=== PATIENT | female | born 1995 | race African-American/Black ===

== ENCOUNTER → 2017-01-22 | Outpatient (CLI) | payer MEDICAID, OTHER ==
[2017-01-22 13:19] LABS: BASO # 0.1 K/mm3 (0.0-0.2); BASO % 0.9 % (0.0-1.0); EOS # 0.1 K/mm3 (0.0-0.50); EOS % 1.7 % (0.0-3.0); LARGE UNSTAINED CELL # 0.1 K/mm3 (0.0-0.4); LARGE UNSTAINED CELL % 1.5 % (0.0-4.0); LYMPH # 2.1 K/mm3 (1.5-6.5); LYMPH % 29.1 % (24.0-44.0); MEAN CORPUSCULAR HEMOGLOBIN 28.9 pg (27.0-33.0); MEAN CORPUSCULAR HGB CONC 32.5 g/dl (32.0-36.5); MONO # 0.4 K/mm3 (0.0-0.8); MONO % 5.6 % (0.0-5.0); NEUTROPHILS # 4.5 K/mm3 (1.8-7.7); NEUTROPHILS % 61.2 % (36.0-66.0); PLATELET COUNT, AUTOMATED 306 k/mm3 (150-450); RED CELL DISTRIBUTION WIDTH 12.3 % (11.5-14.5); WHITE BLOOD COUNT 7.3 K/mm3 (4.0-10.0)
[2017-01-22 14:13] LABS: HIV SCRN NEGATIVE (NEGATIVE); HIV SCRN1 NEGATIVE (NEGATIVE)
[2017-01-22 14:14] LABS: CONTROL LINE INT CTR LINE PRESENT
== END ==
LOC: M LAB 11:49
PROVIDERS: ATTEND Advanced Practice Midwife
DX: Z34.81 Encounter for supervision of other normal pregnancy, first trimester (principal)

== ENCOUNTER → 2017-02-04 | Outpatient (REF) | payer MEDICAID ==
[2017-02-07 14:36] LABS: GC Carboxy THC 118 ng/mL (Cutoff=10)
== END ==
LOC: M LAB REF 13:09
PROVIDERS: ATTEND Advanced Practice Midwife
DX: Z34.81 Encounter for supervision of other normal pregnancy, first trimester (principal)

== ENCOUNTER → 2017-04-01 | Outpatient (CLI) | payer MEDICAID | LOC: M SMT 11:33 | PROVIDERS: ATTEND Advanced Practice Midwife | DX: Z13.71 Encounter for nonprocreative screening for genetic disease carrier status (principal) ==

== ENCOUNTER → 2017-04-15 | Outpatient (CLI) | payer OTHER ==
--- NOTE | 2017-04-16 05:02 | REP ---
Clinical: Anatomical evaluation. Comparison: None . Findings: Examination demonstrates a single live intrauterine in variable presentation. motion is identified by technologist. Placenta is noted anteriorly and grade zero without evidence for placenta previa or abruption. Amniotic fluid volume is normal. Cervix measures 3.4 cm in length and appears closed. No evidence for nuchal cord. Gestational age by LMP 18 weeks 5 days with CON 09/11/2017 . Gestational age by current measurements 19 weeks 0 days with CON 09/09/2017 . FHR equals 141 beats per minute. BPD 4.2 cm 18 weeks 4 days HC 15.4 cm 18 weeks 3 days AC 14.4 cm 19 weeks 5 days FL 3.2 cm 19 weeks 6 days HL 3.1 cm 20 weeks 3 days HC/AC ratio 1.07 Estimated weight the 103 grams ( 83rd percentile). Anatomical assessment demonstrates normal structures including cranium, choroid plexus, cavum, cerebellum/posterior fossa, facial features, lungs, diaphragm, stomach, cord insertion/three-vessel cord, kidneys/bladder, and extremities. Limited evaluation of the heart/ventricular outflow tracts and spine noted. Impression: 1. Single live intrauterine demonstrating appropriate interval growth. 2. Anatomical limitations as described above may warrant reevaluation and follow-up. Signed by Keith Ash MD 04/16/2017 04:53 A
== END ==
LOC: M SMT 09:25
PROVIDERS: ATTEND Advanced Practice Midwife
DX: Z34.82 Encounter for supervision of other normal pregnancy, second trimester (principal)

== ENCOUNTER → 2017-05-06 | Outpatient (CLI) | payer OTHER ==
--- NOTE | 2017-05-06 12:13 | REP ---
Clinical: Anatomical evaluation. Comparison: 04/15/2017 . Findings: Examination demonstrates a single live intrauterine in variable presentation. motion is identified by technologist. Placenta is noted anteriorly and grade zero without evidence for placenta previa or abruption. Amniotic fluid volume is normal. Cervix measures 4.0 cm in length and appears closed. No evidence for nuchal cord. Gestational age by LMP 21 weeks 5 days with CON 09/11/2017 . Gestational age by current measurements 22 weeks 0 days with CON 09/09/2017 . FHR equals 141 beats per minute. Estimated weight 524 grams ( 79th percentile). Anatomical assessment demonstrates normal structures including cranium, choroid plexus, cavum, cerebellum/posterior fossa, facial features, lungs, four-chamber heart/ left ventricular outflow tract, diaphragm, stomach, cord insertion/three-vessel cord, kidneys/bladder, spine, and extremities. Impression: Single live intrauterine in variable presentation demonstrating appropriate interval growth. In conjunction with prior examination anatomical assessment is essentially normal and complete although evaluation of the right cardiac ventricular outflow tract is again somewhat limited. Signed by Keith Ash MD 05/06/2017 08:57 A
== END ==
LOC: M SMT 07:43
PROVIDERS: ATTEND Advanced Practice Midwife
DX: Z34.82 Encounter for supervision of other normal pregnancy, second trimester (principal)

== ENCOUNTER → 2017-06-03 | Outpatient (CLI) | payer OTHER ==
[~2017-06-03] MED LIST: PRENTAB9 PO
--- NOTE | 2017-06-04 04:20 | REP ---
Clinical: Anatomical evaluation. Comparison: 05/06/2017 . Findings: Examination demonstrates a single live intrauterine in cephalic presentation. motion is identified by technologist. Placenta is noted anteriorly and grade one without evidence for placenta previa or abruption. Amniotic fluid volume is normal. Cervix measures 4.1 cm in length and appears closed. No evidence for nuchal cord. Gestational age by LMP 25 weeks 5 days with CON 09/11/2017 . Gestational age by current measurements 25 weeks 6 days with CON 09/10/2017 . FHR equals 141 beats per minute. Estimated weight 943 grams ( 65th percentile). Anatomical assessment demonstrates normal structures including cranium, choroid plexus, cavum, cerebellum/posterior fossa, facial features, lungs, four-chamber heart/ventricular outflow tracts, diaphragm, stomach, cord insertion/three-vessel cord, kidneys/bladder, and extremities. Impression: Single live intrauterine in cephalic presentation demonstrating appropriate interval growth. In conjunction with prior examination anatomical assessment is complete and normal. Signed by Keith Ash MD 06/04/2017 04:12 A
== END ==
LOC: M SMT 08:56
PROVIDERS: ATTEND Advanced Practice Midwife
DX: Z34.83 Encounter for supervision of other normal pregnancy, third trimester (principal)

== ENCOUNTER 2017-06-15 11:30 | Outpatient (CLI) | payer OTHER ==
[~2017-06-15] VITALS: Ht 175.3 cm; Wt 82.0 kg
[2017-06-15] MEDS ORDERED: PRENTAB9 PO (11:37)
[2017-06-15 11:42] VITALS: BP 121/71
[2017-06-15 11:54] VITALS: BP 121/71
[2017-06-15] MEDS ORDERED: LR 1,000 ML IV ONE (12:15)
[2017-06-15 12:37] LABS: BASO % 0.3 % (0.0-1.0); EOS # 0.1 K/mm3 (0.0-0.50); EOS % 1.7 % (0.0-3.0); LARGE UNSTAINED CELL # 0.1 K/mm3 (0.0-0.4); LARGE UNSTAINED CELL % 1.7 % (0.0-4.0); LYMPH # 0.9 K/mm3 (1.5-6.5); LYMPH % 9.6 % (24.0-44.0); MEAN CORPUSCULAR HEMOGLOBIN 30.7 pg (27.0-33.0); MEAN CORPUSCULAR HGB CONC 34.2 g/dl (32.0-36.5); MEAN CORPUSCULAR VOLUME 89.9 fl (80.0-96.0); MONO # 0.4 K/mm3 (0.0-0.8); MONO % 5.8 % (0.0-5.0); NEUTROPHILS # 6.2 K/mm3 (1.8-7.7); NEUTROPHILS % 80.9 % (36.0-66.0); PLATELET COUNT, AUTOMATED 298 k/mm3 (150-450); RED CELL DISTRIBUTION WIDTH 12.8 % (11.5-14.5); WHITE BLOOD COUNT 7.7 K/mm3 (4.0-10.0)
[2017-06-15 13:00] LABS: ALBUMIN 2.9 GM/DL (3.2-5.2); ALBUMIN/GLOBULIN RATIO 0.69 (1.00-1.93); ALKALINE PHOSPHATASE 74 U/L (45-117); ALT/SGPT 21 U/L (12-78); ANION GAP 10 MEQ/L (8-16); AST/SGOT 22 U/L (15-37); BILIRUBIN,TOTAL 0.5 MG/DL (0.2-1.0); BLOOD UREA NITROGEN 6 MG/DL (7-18); CALCIUM LEVEL 8.6 MG/DL (8.5-10.1); CARBON DIOXIDE LEVEL 22 MEQ/L (21-32); CHLORIDE LEVEL 105 MEQ/L (98-107); CREATININE FOR GFR 0.44 MG/DL (0.55-1.02); GLUCOSE, FASTING 79 MG/DL (70-105); POTASSIUM SERUM 3.8 MEQ/L (3.5-5.1); SODIUM LEVEL 137 MEQ/L (136-145); TOTAL PROTEIN 7.1 GM/DL (6.4-8.2)
== END 2017-06-15 13:45 | disposition home or self-care (01) ==
LOC: M LDO 11:30
PROVIDERS: ATTEND Obstetrics & Gynecology
DX: O99.612 Diseases of the digestive system complicating pregnancy, second trimester (principal); K52.9 Noninfective gastroenteritis and colitis, unspecified; Z3A.27 27 weeks gestation of pregnancy; Z88.0 Allergy status to penicillin

== ENCOUNTER → 2017-06-24 | Outpatient (CLI) | payer OTHER ==
[2017-06-24 14:06] LABS: BASO % 0.4 % (0.0-1.0); EOS # 0.1 K/mm3 (0.0-0.50); EOS % 1.3 % (0.0-3.0); LARGE UNSTAINED CELL # 0.1 K/mm3 (0.0-0.4); LARGE UNSTAINED CELL % 1.4 % (0.0-4.0); LYMPH # 1.4 K/mm3 (1.5-6.5); LYMPH % 23.6 % (24.0-44.0); MEAN CORPUSCULAR HEMOGLOBIN 30.4 pg (27.0-33.0); MEAN CORPUSCULAR HGB CONC 33.3 g/dl (32.0-36.5); MEAN CORPUSCULAR VOLUME 91.4 fl (80.0-96.0); MONO # 0.4 K/mm3 (0.0-0.8); MONO % 6.3 % (0.0-5.0); NEUTROPHILS % 66.9 % (36.0-66.0); PLATELET COUNT, AUTOMATED 345 k/mm3 (150-450); RED CELL DISTRIBUTION WIDTH 12.4 % (11.5-14.5)
== END ==
LOC: M SMT 09:34
PROVIDERS: ATTEND Advanced Practice Midwife
DX: Z34.83 Encounter for supervision of other normal pregnancy, third trimester (principal)

== ENCOUNTER → 2017-08-09 | Outpatient (CLI) | payer OTHER ==
[~2017-08-09] MED LIST changes: +ACET50TA PO; +IBUP-1114 PO
[2017-08-09 13:40] LABS: MEAN CORPUSCULAR HEMOGLOBIN 29.1 pg (27.0-33.0); RED CELL DISTRIBUTION WIDTH 13.5 % (11.5-14.5); WHITE BLOOD COUNT 8.3 10^3/uL (4.0-10.0)
== END ==
LOC: M SMT 11:58
PROVIDERS: ATTEND Obstetrics & Gynecology
DX: Z34.83 Encounter for supervision of other normal pregnancy, third trimester (principal)

== ENCOUNTER → 2017-08-14 | Outpatient (REF) | payer OTHER | LOC: M LAB REF 12:41 | PROVIDERS: ATTEND Obstetrics & Gynecology | DX: Z34.83 Encounter for supervision of other normal pregnancy, third trimester (principal) ==

== ENCOUNTER 2017-09-17 08:16 | Outpatient (CLI) | payer OTHER ==
[~2017-09-17] VITALS: Ht 175.3 cm; Wt 95.0 kg
[~2017-09-17 08:16] MED LIST changes: -ACET50TA PO; -IBUP-1114 PO
== END 2017-09-17 13:40 | disposition home or self-care (01) ==
LOC: M LDO 08:16
PROVIDERS: ATTEND Advanced Practice Midwife
DX: O47.1 False labor at or after 37 completed weeks of gestation (principal); Z3A.40 40 weeks gestation of pregnancy

== ENCOUNTER 2017-09-18 05:22 | Inpatient (IN) | payer OTHER ==
[~2017-09-18] VITALS: Ht 175.3 cm; Wt 95.0 kg
[2017-09-18] VITALS (47 sets, daily range): BP systolic 99–173; BP diastolic 53–84
[2017-09-18] MEDS ORDERED: PENICILLIN G POTASSIUM IV 5 MU in D5W MINI-BAG PLUS 100 ML IV STA (05:46)
[2017-09-18] MEDS ORDERED: LACTATED RINGER'S 1000 ML IV STA (05:46)
[2017-09-18] MEDS ORDERED: OXYTOCIN DRIP 30 UNITS in APPROPRIATE DILUENT 1 EA IV SCH ×2 (06:00→20:03)
--- NOTE | 2017-09-18 06:24 | HPE ---
DATE OF ADMISSION: 09/18/2017 HISTORY OF PRESENT ILLNESS: Tylor is a 21-year-old 2, para 0-0-1-0 at 41 weeks gestation with an estimated date of confinement (EDC) of 09/11/2017, based on last menstrual period and confirmed by first trimester ultrasound. She presents to labor and delivery today with report of uncomfortable contractions throughout all of yesterday and through the night that have now become consistently every 2-3 minutes and are more uncomfortable. She does report some scant bloody show. Denies leakage of fluid, and the fetus has been active. She was scheduled for postdate induction today as well. Her care was initiated at [facility] in the first trimester. Her course complicated by rubella equivocal, positive chlamydia during with a followup test of cure 02/04/2017 negative, and maternal anemia. OBSTETRICAL HISTORY: Elective termination of January 2012. OBSTETRICAL LABORATORIES: O positive, antibody screen negative, rubella equivocal, VDRL nonreactive. Urine culture no growth. Hepatitis B surface antigen negative, HIV negative. Hepatitis C antibody nonreactive. Chlamydia positive. Gonorrhea negative. Followup gonorrhea and chlamydia in 02/04/2017 negative/negative. She did undergo urine drug screen that returned positive results for marijuana on 02/04/2017 as well. Her genetic screening quad screen was normal. Gestational diabetic screening 98 and her GBS is positive. PAST MEDICAL HISTORY: Childhood varicella. SURGERIES: None. FAMILY HISTORY: Hypertension. SOCIAL HISTORY: The patient is single. Her partner is at bedside and supportive. She is a former smoker. Denies any current smoking and reports she quit when she found out she was . She denies alcohol use. She does report a history of marijuana use, last use in December; however, drug screen in January was positive for marijuana as well. She has a history of chlamydia. She does deny history of abuse. ALLERGIES: No known drug allergies. She does report that her mother and her sister are allergic to penicillin but denies any reaction to penicillin herself. MEDICATIONS: Ferrous sulfate and vitamins. OBJECTIVE: Temperature 99.5, pulse 84, respirations 18, blood pressure 123/78. She is somewhat uncomfortable with her contractions. Alert and oriented times three. heart rate 135 with moderate variability, positive accelerations, some occasional variable decelerations. She is rocio every 2-3 minutes approximately 45-60 seconds long. Sterile vaginal exam 2 cm dilated, 90% effaced, minus three station. ASSESSMENT: Intrauterine at 41 weeks gestation. heart rate category II at this time, but reassuring. Early labor/latent labor, post-term . PLAN: Admit the patient to labor and delivery. Out of bed ad delaney. Labs as ordered. Intravenous (IV) fluid bolus. Start IV Pitocin for labor augmentation/induction. I did review risks to induction including increased risk for section, intolerance to labor and failed induction. The patient has had all her questions answered and desires to proceed with labor augmentation at this time. IV Pitocin has been ordered. I do anticipate labor progress and a spontaneous vaginal delivery.
[2017-09-18 07:08] LABS: MEAN CORPUSCULAR HEMOGLOBIN 28.9 pg (27.0-33.0); MEAN CORPUSCULAR VOLUME 90.2 fl (80.0-96.0); PLATELET COUNT, AUTOMATED 258 10^3/uL (150-450); RED CELL DISTRIBUTION WIDTH 13.5 % (11.5-14.5); WHITE BLOOD COUNT 9.1 10^3/uL (4.0-10.0)
[2017-09-18] MEDS: PENICILLIN G POTASSIUM IV 2.5 MU in D5W 100 ML IV SCH ×3 (09:53→18:10)
[2017-09-18] MEDS: LR 1,000 ML IV SCH ×2 (11:12→12:20)
[2017-09-18] MEDS ORDERED: FENTANYL 2MCG/ML ROPIVACAINE 0.2% IN 0.9% NACL 200ML IVBAG As Ordered ONE (11:18)
[2017-09-18] MEDS ORDERED: ONDANSETRON 4MG/2ML VIAL (J2405) IV PRN (12:30)
[2017-09-18] MEDS ORDERED: EPIDURAL/PCA KEYS XX PRN (12:30)
[2017-09-18] MEDS ORDERED: NALOXONE INJ 0.4 MG/1 ML VIAL (J2310) IV PRN (12:30)
[2017-09-18] MEDS ORDERED: REFRIGERATOR IV KEYS XX PRN (12:30)
[2017-09-18] MEDS ORDERED: FENTANYL/ROPIVACAINE/NACL BAG 200 ML EPIDURAL SCH (12:30)
[2017-09-18] MEDS ORDERED: LACTATED RINGER'S 1000 ML IV PRN (12:30)
[2017-09-18] MEDS ORDERED: diphenhydrAMINE INJ 50MG/ML VIAL (J1200) IV PRN (12:30)
[2017-09-18] MEDS ORDERED: ePHEDrine SULFATE 25 MG/5 ML(5MG/ML) SYRINGE IV PRN (12:30)
[2017-09-18] MEDS ORDERED: EPIDURAL COMMENT XX SCH (12:30)
[2017-09-18] MEDS ORDERED: DOCUSATE SODIUM 100 MG CAP PO PRN (20:15)
[2017-09-18] MEDS ORDERED: RHOGAM 300 MCG (1500 IU) INJ (J2790) IM SCH (20:15)
[2017-09-18] MEDS ORDERED: ACETAMINOPHEN 500 MG TAB PO PRN (20:15)
[2017-09-18] MEDS ORDERED: DIBUCAINE 1% OINTMENT 30GM TOP PRN (20:15)
[2017-09-18] MEDS ORDERED: METHYLERGONOVINE MALEATE 0.2 MG TAB PO PRN (20:15)
[2017-09-18] MEDS ORDERED: LIDOCAINE 1% MDV INJ 50 ML VIAL INFIL ONE (20:15)
[2017-09-18] MEDS ORDERED: MEASLES,MUMPS,RUBELLA VACCINE INJ (MMR-II) (90707) SC SCH (20:15)
[2017-09-18] MEDS ORDERED: MOM 30ML SUSPENSION UDC PO PRN (20:15)
[2017-09-18] MEDS ORDERED: ANUSOL HC CREAM 30GM TOP PRN (20:15)
--- NOTE | 2017-09-19 01:05 | DN ---
DATE OF DELIVERY: 09/18/2017 TIME OF : 1941 GENDER: Female. SCORES: 8 and 9. WEIGHT: 7 pounds 9 ounces, 3440 grams. LACERATIONS: First-degree midline laceration. ANESTHESIA: Epidural. ESTIMATED BLOOD LOSS: 300 mL. COUNTS: Five laparotomy sponges accounted for prior to and after delivery. Two sharps removed from the delivery field. DELIVERY NOTE: On 09/18/2017, at 1943, Ms. Dumas, a 21-year-old 2, now para 1 had a spontaneous vaginal delivery of a liveborn female infant, scores 8 and 9, weight was 3440 grams or 7 pounds 9 ounces. Head was delivered BRETT followed by delivery of left anterior shoulder, right posterior shoulder and corpus. Cord was clamped times two, was cut by the father of the baby under my direction. was handed to mom with a good cry. Cord blood was then obtained. Placenta was drained and delivered grossly intact. A premixed bag of 500 mL of normal saline with 30 units of Pitocin was bolused along with uterine massage until the uterus was firm. Upon inspection, there was a first-degree midline laceration which was repaired with 3-0 Vicryl Rapide. On resinspection, cervix, vagina, and perineum were grossly intact and hemostatic. Mom and baby recovered in stable condition. The couple has decided to name their daughter LIZETH
[2017-09-19 06:00] VITALS: BP 118/63
[2017-09-19] MEDS: PRENATAL VITAMINS CHEWABLE TABLET PO SCH (08:30)
[2017-09-19] MEDS: IBUPROFEN 800 MG TAB PO PRN ×2 (12:53→23:01)
[2017-09-19 18:49] VITALS: BP 134/72
[2017-09-20 07:51] VITALS: BP 121/83
[2017-09-20] MEDS ORDERED: IBUP-1114 PO (08:44)
[2017-09-20] MEDS ORDERED: ACET50TA PO (08:44)
[2017-09-20] MEDS: PRENATAL VITAMINS CHEWABLE TABLET PO SCH (08:57)
[2017-09-20] MEDS: IBUPROFEN 800 MG TAB PO PRN (12:42)
== END 2017-09-20 13:00 | disposition home or self-care (01) | DRG 560 ==
LOC: M LDI 05:22 → M OBS 21:20
PROVIDERS: ADMIT Advanced Practice Midwife; ATTEND Advanced Practice Midwife
PROC: 10E0XZZ Delivery of Products of Conception, External Approach (ICD-10-PCS; principal; 2017-09-18)
PROC: 0HQ9XZZ Repair Perineum Skin, External Approach (ICD-10-PCS; 2017-09-18)
DX: O48.0 Post-term pregnancy (principal); O99.824 Streptococcus B carrier state complicating childbirth; Z37.0 Single live birth; Z3A.41 41 weeks gestation of pregnancy; Z87.891 Personal history of nicotine dependence; Z79.899 Other long term (current) drug therapy; O70.0 First degree perineal laceration during delivery

== ENCOUNTER → 2018-01-14 | Outpatient (REF) | payer OTHER | LOC: M LAB REF 17:54 | DX: Z12.4 Encounter for screening for malignant neoplasm of cervix (principal) ==

== ENCOUNTER → 2019-01-20 | Outpatient (REF) | payer OTHER ==
[~2019-01-20] MED LIST changes: +IBUP-1114 PO; +MAPA500T2 PO
== END ==
LOC: M WUC 19:23
PROVIDERS: ATTEND Physician Assistant
DX: R11.2 Nausea with vomiting, unspecified (principal)

== ENCOUNTER 2019-02-15 07:03 | Emergency (ER) | payer OTHER ==
[~2019-02-15] VITALS: Ht 175.3 cm; Wt 101.4 kg
[2019-02-15 07:46] LABS: BASO # 0.1 10^3/uL (0.0-0.2); BASO % 0.9 % (0.0-1.0); EOS # 0.1 10^3/uL (0.0-0.50); EOS % 1.6 % (0.0-3.0); HEMATOCRIT 35.7 % (36.0-47.0); HEMOGLOBIN 11.6 g/dl (12.0-15.5); LYMPH # 1.7 10^3/uL (1.5-6.5); MEAN CORPUSCULAR HEMOGLOBIN 28.3 pg (27.0-33.0); MEAN CORPUSCULAR HGB CONC 32.5 g/dl (32.0-36.5); MEAN CORPUSCULAR VOLUME 87.1 fl (80.0-96.0); MONO # 0.9 10^3/uL (0.0-0.8); MONO % 13.7 % (0.0-5.0); NEUTROPHILS # 4.1 10^3/uL (1.8-7.7); NEUTROPHILS % 59.7 % (36.0-66.0); PLATELET COUNT, AUTOMATED 285 10^3/uL (150-450); WHITE BLOOD COUNT 6.9 10^3/uL (4.0-10.0)
[2019-02-15] MEDS ORDERED: FLAG500T PO (08:24)
--- NOTE | 2019-02-15 09:19 | REP ---
Clinical: Vaginal bleeding for dating and viability. Technique: Transabdominal and transvaginal first trimester obstetrical ultrasound with color Doppler evaluation. Findings: Early diamniotic dichorionic twin gestation appreciated. A small subchorionic hemorrhage was identified along the right side of the uterus measuring 26 x 8 x 5 mm. Maternal ovaries are normal in appearance and vascularity with bilateral hemorrhagic cysts. Small amount of free fluid was identified within the posterior cul-de-sac likely physiologic. Twin A: Gestational sac with yolk sac and pole identified. pole measuring 5 mm corresponds to 6 weeks 2 days gestational age. heart rate equals 122 beats per minute. Twin B: Gestational sac with yolk sac and pole identified. pole measuring 6 mm corresponds to 6 weeks 3 days gestational age. heart rate equals 118 beats per minute. Impression: Early diamniotic dichorionic twin gestation. Based on current measurements, estimated date of delivery at 10/08/2019. Electronically Signed by Keith Ash MD 02/15/2019 09:11 A
[2019-02-15] MEDS ORDERED: MACR100C43 PO (09:26)
[2019-02-15 09:35] VITALS: BP 135/82
[2019-02-15 09:40] LABS: CHLAMYDIA DNA AMPLIFICATION NEGATIVE (NEGATIVE); GC DNA AMPLIFICATION NEGATIVE (NEGATIVE)
== END 2019-02-15 09:37 | disposition home or self-care (01) ==
LOC: M ED 07:03
DX: O23.41 Unspecified infection of urinary tract in pregnancy, first trimester (principal); O23.591 Infection of other part of genital tract in pregnancy, first trimester; Z3A.01 Less than 8 weeks gestation of pregnancy; O30.041 Twin pregnancy, dichorionic/diamniotic, first trimester

== ENCOUNTER → 2019-02-16 | Outpatient (CLI) | payer OTHER ==
[~2019-02-16] MED LIST changes: +FLAG500T PO; +MACR100C43 PO
[2019-02-16 17:47] LABS: BASO # 0.1 10^3/uL (0.0-0.2); BASO % 0.6 % (0.0-1.0); EOS # 0.1 10^3/uL (0.0-0.50); HEMATOCRIT 37.9 % (36.0-47.0); LYMPH # 1.8 10^3/uL (1.5-6.5); LYMPH % 22.5 % (24.0-44.0); MEAN CORPUSCULAR HGB CONC 31.7 g/dl (32.0-36.5); MEAN CORPUSCULAR VOLUME 88.3 fl (80.0-96.0); MONO # 1.1 10^3/uL (0.0-0.8); MONO % 13.8 % (0.0-5.0); NEUTROPHILS # 4.8 10^3/uL (1.8-7.7); NEUTROPHILS % 61.8 % (36.0-66.0); PLATELET COUNT, AUTOMATED 295 10^3/uL (150-450); RED BLOOD COUNT 4.29 10^6/uL (4.00-5.40); WHITE BLOOD COUNT 7.8 10^3/uL (4.0-10.0)
[2019-02-16 20:17] LABS: CHLAMYDIA DNA AMPLIFICATION NEGATIVE (NEGATIVE); GC DNA AMPLIFICATION NEGATIVE (NEGATIVE)
[2019-02-17 09:58] LABS: HIV 1&2 SCREEN CENTAUR NEGATIVE (NEGATIVE); RUBELLA IgG QUALITATIVE IMMUNE (IMMUNE)
[2019-02-18 10:06] LABS: HEPATITIS C VIRUS ABY INDEX 0.1 INDEX (<0.8)
== END ==
LOC: M SMT 14:40
PROVIDERS: ATTEND Obstetrics & Gynecology
DX: O30.041 Twin pregnancy, dichorionic/diamniotic, first trimester (principal)

== ENCOUNTER 2019-03-01 13:36 | Emergency (ER) | payer OTHER ==
[~2019-03-01] VITALS: Ht 175.3 cm; Wt 101.4 kg
[2019-03-01 15:39] LABS: BASO % 0.4 % (0.0-1.0); EOS # 0.1 10^3/uL (0.0-0.50); EOS % 0.4 % (0.0-3.0); HEMATOCRIT 36.3 % (36.0-47.0); HEMOGLOBIN 11.8 g/dl (12.0-15.5); MEAN CORPUSCULAR HEMOGLOBIN 28.4 pg (27.0-33.0); MEAN CORPUSCULAR HGB CONC 32.5 g/dl (32.0-36.5); MEAN CORPUSCULAR VOLUME 87.5 fl (80.0-96.0); MONO # 0.9 10^3/uL (0.0-0.8); MONO % 7.6 % (0.0-5.0); NEUTROPHILS # 8.2 10^3/uL (1.8-7.7); NEUTROPHILS % 73.3 % (36.0-66.0); PLATELET COUNT, AUTOMATED 376 10^3/uL (150-450); RED BLOOD COUNT 4.15 10^6/uL (4.00-5.40); WHITE BLOOD COUNT 11.2 10^3/uL (4.0-10.0)
[2019-03-01] MEDS ORDERED: GI COCKTAIL 50ML BTL(HYOSCYAMINE/MAALOX/LIDOCAINE VISCOUS)(1:3:1) PO ONE (15:45)
[2019-03-01 16:25] LABS: ALBUMIN 3.6 GM/DL (3.2-5.2); ALT/SGPT 17 U/L (12-78); BILIRUBIN,DIRECT 0.1 MG/DL (0.0-0.2); BILIRUBIN,TOTAL 0.3 MG/DL (0.2-1.0); BLOOD UREA NITROGEN 5 MG/DL (7-18); CALCIUM LEVEL 8.8 MG/DL (8.5-10.1); CARBON DIOXIDE LEVEL 25 MEQ/L (21-32); CHLORIDE LEVEL 104 MEQ/L (98-107); CREATININE FOR GFR 0.59 MG/DL (0.55-1.30); GLOMERULAR FILTRATION RATE > 60.0 (>60); GLUCOSE, FASTING 76 MG/DL (70-100); HCG, SERUM QUANTITATIVE 160367 MIU/ML; LIPASE 81 U/L (73-393); POTASSIUM SERUM 4.2 MEQ/L (3.5-5.1); SODIUM LEVEL 136 MEQ/L (136-145); TOTAL PROTEIN 7.7 GM/DL (6.4-8.2)
[2019-03-01 17:27] VITALS: BP 122/62
== END 2019-03-01 17:38 | disposition home or self-care (01) ==
LOC: M ED 13:36
DX: O26.891 Other specified pregnancy related conditions, first trimester (principal); Z3A.00 Weeks of gestation of pregnancy not specified; Z79.899 Other long term (current) drug therapy

== ENCOUNTER → 2019-05-06 | Outpatient (CLI) | payer OTHER ==
--- NOTE | 2019-05-06 15:23 | REP ---
Clinical: Twin gestation. Anatomical evaluation Comparison: 02/15/2019 . Findings: Examination demonstrates diamniotic dichorionic twin gestation. Cervix measures 4.1 cm in length and appears closed. Concordant growth is noted. Gestational age by LMP at 18 weeks 1 day with estimated date of delivery 10/06/2019 . TWIN A: Twin A identified in cephalic presentation along the maternal midline side. Placenta is noted anteriorly and grade zero without evidence for placenta previa or abruption. motion is appreciated. Amniotic fluid volume is normal . FHR equals 156 beats per minute. BPD 4.0 cm 18 weeks 1 day HC 15.0 cm 18 weeks 0 days AC 12.4 cm 18 weeks 0 days FL 2.8 cm 18 weeks 4 days HL 2.6 cm 18 weeks 3 days HC/AC ratio 1.21 Gestational age by current measurements: 18 weeks 2 days . Estimated weight 231 grams ( 52 percentile). Anatomical assessment demonstrates normal cranium, cord plexus, cavum, posterior fossa, lungs, diaphragm, stomach, cord insertion/three-vessel cord, kidneys/bladder, spine, and extremities. Limited evaluation of the facial features and heart/ventricular outflow tracts noted. ------- TWIN B: Twin B identified in transverse (head to maternal right) presentation along the maternal superior/fundal side. Placenta is noted anterior and grade zero without evidence for placenta previa or abruption. motion is appreciated. Amniotic fluid volume is normal. FHR equals 140 beats per minute. BPD 3.9 cm 17 weeks 6 days HC 14.9 cm 18 weeks 0 days AC 12.6 cm 18 weeks 2 days FL 2.8 cm 18 weeks 4 days HL 2.7 cm 18 weeks 3 days HC/AC ratio 1.18 Gestational age by current measurements: 18 weeks 1 day . Estimated weight 234 grams ( 55 percentile). Anatomical assessment demonstrates normal cranium, cord plexus, cavum, posterior fossa, facial features, lungs, diaphragm, stomach, cord insertion/three-vessel cord, kidneys/bladder, and upper extremities. Limited evaluation of the heart/ventricular outflow tracts, spine and lower extremities noted. Impression: 1. Diamniotic dichorionic twin gestation demonstrating appropriate concordant growth. No gross abnormalities are identified. 2. Anatomical limitations as noted above may warrant reevaluation and follow-up. Electronically Signed by Keith Ash MD 05/06/2019 03:14 P
== END ==
LOC: M RAD 14:01
PROVIDERS: ATTEND Obstetrics & Gynecology
DX: O30.043 Twin pregnancy, dichorionic/diamniotic, third trimester (principal); Z3A.18 18 weeks gestation of pregnancy

== ENCOUNTER → 2019-05-22 | Outpatient (CLI) | payer OTHER | LOC: M SMT 10:45 | PROVIDERS: ATTEND Obstetrics & Gynecology | DX: Z36.0 Encounter for antenatal screening for chromosomal anomalies (principal) ==

== ENCOUNTER → 2019-07-15 | Outpatient (CLI) | payer MEDICAID, OTHER ==
[~2019-07-15] MED LIST changes: +IBUP80TA PO; +PERCOCET PO
[2019-07-15 18:59] LABS: HEMATOCRIT 30.6 % (36.0-47.0); HEMOGLOBIN 9.6 g/dl (12.0-15.5); MEAN CORPUSCULAR HEMOGLOBIN 28.2 pg (27.0-33.0); MEAN CORPUSCULAR HGB CONC 31.4 g/dl (32.0-36.5); MEAN CORPUSCULAR VOLUME 89.7 fl (80.0-96.0); PLATELET COUNT, AUTOMATED 351 10^3/uL (150-450); RED BLOOD COUNT 3.41 10^6/uL (4.00-5.40); WHITE BLOOD COUNT 8.6 10^3/uL (4.0-10.0)
== END ==
LOC: M SMT 13:52
PROVIDERS: ATTEND Obstetrics & Gynecology
DX: O30.042 Twin pregnancy, dichorionic/diamniotic, second trimester (principal); Z3A.00 Weeks of gestation of pregnancy not specified

== ENCOUNTER → 2019-07-20 | Outpatient (CLI) | payer OTHER, SELFPAY ==
[~2019-07-20] MED LIST changes: -IBUP80TA PO; -PERCOCET PO
== END ==
LOC: M LAB 07:47
PROVIDERS: ATTEND Obstetrics & Gynecology
DX: O30.042 Twin pregnancy, dichorionic/diamniotic, second trimester (principal)

== ENCOUNTER 2019-07-21 13:26 | Outpatient (CLI) | payer SELFPAY ==
[~2019-07-21] VITALS: Ht 175.3 cm; Wt 103.7 kg
[2019-07-21 13:51] VITALS: BP 127/66
[2019-07-21 15:30] VITALS: BP 117/60
== END 2019-07-21 15:45 | disposition home or self-care (01) ==
LOC: M LDO 13:26
PROVIDERS: ATTEND Specialist
DX: O30.043 Twin pregnancy, dichorionic/diamniotic, third trimester (principal); Z3A.29 29 weeks gestation of pregnancy
CPT/HCPCS: 59025; G0378; G0463

== ENCOUNTER 2019-07-22 17:13 | Outpatient (CLI) | payer SELFPAY ==
[~2019-07-22] VITALS: Ht 175.3 cm; Wt 103.9 kg
[~2019-07-22 17:13] MED LIST changes: -IBUP80TA PO; -PERCOCET PO
[2019-07-22] MEDS ORDERED: LR 1,000 ML IV SCH (17:45)
[2019-07-22] MEDS ORDERED: BETAMETHASONE SOLUSPAN 6MG/ML INJ 5ML (J0702) IM SCH (18:00)
[2019-07-22 18:29] VITALS: BP 126/65
[2019-07-22 18:49] LABS: HEMATOCRIT 30.2 % (36.0-47.0); MEAN CORPUSCULAR HEMOGLOBIN 29.7 pg (27.0-33.0); MEAN CORPUSCULAR HGB CONC 33.1 g/dl (32.0-36.5); MEAN CORPUSCULAR VOLUME 89.6 fl (80.0-96.0); PLATELET COUNT, AUTOMATED 328 10^3/uL (150-450); RED BLOOD COUNT 3.37 10^6/uL (4.00-5.40); WHITE BLOOD COUNT 10.3 10^3/uL (4.0-10.0)
[2019-07-22] MEDS ORDERED: MAGNESIUM *L&D* 4 GM/100 ML BAG (40MG/ML) (J3475) As Ordered ONE (19:44)
[2019-07-22] MEDS ORDERED: CALCIUM GLUCONATE 1,000 MG in D5W MINI-BAG PLUS 100 ML IV PRN (19:45)
[2019-07-22] MEDS ORDERED: MAG Sulf (L&D) 4 GM/100 ML 4 GM in APPROPRIATE DILUENT 1 EA IV ONE (19:45)
[2019-07-22] MEDS ORDERED: MAGNESIUM SULFATE 4% INJ 20GM/500ML (40MG/ML) (J3475) As Ordered ONE (19:45)
[2019-07-22] MEDS ORDERED: MAG Sulf (OBGYN) 20GM/500ML 20,000 MG in APPROPRIATE DILUENT 1 EA IV SCH (20:04)
--- NOTE | 2019-07-22 20:28 | IPN ---
DATE: 07/22/2019 Tylor is a 23-year-old, 3, para 1-0-1-1 at 29-1/7 weeks with an EDC of 10/06/2019 based on last menstrual period and confirmed by first trimester ultrasound. Di/Di twin gestation. She presents to labor and delivery today following routine growth ultrasounds directly from the radiology department reported as a transvaginal ultrasound reporting a shortened cervix. She does report some irregular cramping. Of note she was also seen yesterday for complaint of irregular cramping and reported to have a cervical exam long, thick, and closed, firm. She denies vaginal bleeding or leakage of fluid. The fetuses have been active. Her care initiated at [facility] in the first trimester. Her course complicated by Di/Di Twin gestation. OBSTETRICAL HISTORY: January 2012, . September 2017, 41-week gestation, 7 pounds 11 ounces female, vaginal delivery uncomplicated. OBSTETRIC LABORATORY DATA: O+, antibody screen negative. Pap normal, rubella immune, VDRL nonreactive. Urine culture no growth. Hepatitis B surface antigen negative, HIV negative. Hepatitis C antibody nonreactive. Gonorrhea and chlamydia negative. AFP4 screen negative. Gestational diabetic screening abnormal at 136. She has yet to have her 3-hour glucose tolerance test performed. Most recent CBC documented in her record with a hemoglobin of 9.6, hematocrit 30.6, platelet 351. PAST MEDICAL HISTORY: She has a history of depression. Childhood varicella. SURGERIES: D and C. FAMILY HISTORY: Hypertension, thyroid disease. SOCIAL HISTORY: The patient is single however, her partner is present at bedside and appears supportive. She is a nonsmoker. Denies alcohol and drug use. She does report a history of positive chlamydia in 2017 and she denies history of abuse; physical, sexual and emotional. ALLERGIES: No known drug allergies. CURRENT MEDICATIONS: - vitamins OBJECTIVE: Temperature 98.9, pulse 85, respiration 18, blood pressure 126/85. heart rate twin A 150, appropriate for gestational age. heart rate twin B 160, appropriate for gestational age. There does not appear to be a regular pattern of contractions. Her sterile vaginal exam: 2-3 cm, 50% effaced, -3 station, posterior. No show with the exam. Her growth ultrasounds appear appropriate. Twin A measures 29 weeks' 4 days. Twin B measures 29 weeks' 3 days. Of note, the transvaginal ultrasound reports the cervix is completely open, no measurable cervix seen. CBC ordered upon arrival with a hemoglobin of 10.0, hematocrit 30.2, WBC 10.3, platelet 328. Type and screen O+, antibody screen negative. GBS is pending. ASSESSMENT: Intrauterine Di/Di twin gestation at 29-1/7 weeks. heart rate appropriate for gestational age times two. labor. PLAN: Per consult with Dr. Abbey Crawford. Betamethasone injection. Consult [facility] for maternal transfer. Spoke with Dr. Velasco, he accepts transfer of this patient. Advised magnesium sulfate for neurologic protection which has been ordered. I did review risks, benefits and alternatives with the patient and her partner, all of their questions have been answered. They have consented for transfer to [facility], the process has been started. LIZETH
== END 2019-07-22 21:27 | disposition critical access hospital (66) ==
LOC: M LDO 17:13
PROVIDERS: ATTEND Advanced Practice Midwife
DX: O30.043 Twin pregnancy, dichorionic/diamniotic, third trimester (principal); Z3A.29 29 weeks gestation of pregnancy; O26.873 Cervical shortening, third trimester
CPT/HCPCS: 85027; 86780; 86850; 86900; 86901; 87081; 96372; G0378; G0463; J0702

== ENCOUNTER → 2019-07-22 | Outpatient (CLI) | payer OTHER, SELFPAY ==
[~2019-07-22] MED LIST changes: +IBUP80TA PO; +PERCOCET PO
--- NOTE | 2019-07-22 18:52 | REPVR ---
EXAM: US After First Trimester, Transabdominal EXAM DATE/TIME: 07/22/2019 5:12 PM CLINICAL HISTORY: 23 years old, female; Lmp or gestational age (in weeks): 29w 1d; Antepartum complications; Other: Open cervix; ; Additional info: Anatomy follow up TECHNIQUE: Imaging protocol: Real-time transabdominal obstetrical ultrasound of the maternal pelvis and a second or third trimester with image documentation. COMPARISON: US OBS FOLL UP OR REPEAT EACH GES 06/03/2019 1:44 PM FINDINGS: Twin A: GESTATION: Gestation: 29 weeks 4 days. Heart rate: heart rate 150 beats per minute. Presentation: Vertex maternal right. Placenta: Anterior, grade 1-2. Amniotic fluid: Amniotic fluid is normal for gestational age. Deepest pocket 6.2 cm. Head, face, and neck: Head, face, and neck anatomy unremarkable. Heart: Unremarkable. Abdomen: Kidneys suboptimally demonstrated. Diaphragm, left-sided stomach, and bladder are unremarkable. Umbilical cord and insertion: Umbilical cord insertion unremarkable. Spine: Spinal anatomy is obscured by position. Extremities: Unremarkable. Limitations: Scan quality was limited due to crowding and advanced gestational age. BIOMETRY: Estimated gestational age: 29 weeks 4 days. Estimated due date: 10/03/2019 Estimated weight: 1374 g, 29 weeks 4 days Biparietal diameter: 7.50 cm, 30 weeks 1 day. Head circumference: 26.49 cm, 28 weeks 6 days. Abdominal circumference: 24.92 cm, 29 weeks 1 day. Femur length: 5.63 cm, 29 weeks 5 days. Twin B: GESTATION: Gestation: 29 weeks 3 days. Heart rate: heart rate 140 beats per minute. Presentation: Transverse lie with the head to the maternal right. Placenta: Anterior, grade 1-2. Amniotic fluid: Amniotic fluid is normal for gestational age. Deepest pocket 3.1 cm. Head, face, and neck: Suboptimal imaging of the choroid plexus, cerebellum/posterior fossa, face profile. Heart: Suboptimal imaging of the heart. Abdomen: Diaphragm, left-sided stomach, kidneys, bladder unremarkable. Umbilical cord and insertion: Umbilical cord insertion is obscured by position. Spine: Unremarkable. Extremities: Suboptimal imaging of the upper and lower extremities. Limitations: Scan quality was limited due to crowding and advanced gestational age. BIOMETRY: Estimated gestational age: 29 weeks 3 days. Estimated due date: 10/04/2019. Estimated weight: 1373 g, 29 weeks 4 days. Biparietal diameter: 7.20 cm, 29 weeks 0 days. Head circumference: 27.02 cm, 29 weeks 4 days. Abdominal circumference: 24.68 cm, 29 weeks 0 days. Femur length: 5.72 cm, 30 weeks 0 days. MATERNAL: Uterus: Unremarkable. Cervix: The cervix is completely open, no measurable cervix seen. IMPRESSION: Twin demonstrating appropriate concordance in growth. No gross abnormalities within limits of the exam as described in detail above. The cervix is completely open, no measurable cervix seen. Electronically signed by: Keith Mayer On 07/22/2019 18:51:49 PM
== END ==
LOC: M RAD 15:56
PROVIDERS: ATTEND Obstetrics & Gynecology
DX: O30.042 Twin pregnancy, dichorionic/diamniotic, second trimester (principal); Z3A.29 29 weeks gestation of pregnancy

== ENCOUNTER 2019-07-28 22:38 | Inpatient (IN) | payer MEDICAID, SELFPAY ==
[~2019-07-28] VITALS: Ht 175.3 cm; Wt 103.2 kg
[2019-07-28] MEDS ORDERED: TERBUTALINE SULFATE 1 MG/ML VIAL (J3105) As Ordered ONE (22:48)
[2019-07-28] MEDS ORDERED: TERBUTALINE SULFATE 1 MG/ML VIAL (J3105) SC ONE (23:00)
[2019-07-28] MEDS ORDERED: ceFAZolin 2 GM/D5W 50 ML IV BAG (J0690 PER 500MG) As Ordered ONE (23:42)
[2019-07-28] MEDS ORDERED: BICITRA 30ML SOLN UDC As Ordered ONE (23:42)
[2019-07-28] MEDS ORDERED: LACTATED RINGER'S 1000 ML IV STA (23:43)
[2019-07-28] MEDS ORDERED: LR 1,000 ML IV SCH (23:43)
[2019-07-28] MEDS ORDERED: AZITHROMYCIN INJ 500MG VIAL (J0456) As Ordered ONE (23:43)
[2019-07-28] MEDS ORDERED: BICITRA 30ML SOLN UDC PO ONE (23:45)
[2019-07-28] MEDS ORDERED: AZITHROMYCIN INJ 500 MG, VIAL MATE ADAPTER 1 EACH in D5W 250 ML IV ONE (23:45)
[2019-07-28] MEDS ORDERED: BUPIVACAINE/DEXTROSE 0.75% 2 ML AMP As Ordered ONE (23:48)
[2019-07-28] MEDS ORDERED: MORPHINE PRES-FREE INJ 10 MG/10 ML VIAL (J2274) As Ordered ONE (23:48)
[2019-07-28] MEDS ORDERED: OXYTOCIN INJ 10 UNITS/ML VIAL (J2590) As Ordered ONE (23:48)
[2019-07-28] MEDS ORDERED: ePHEDrine SULFATE 25 MG/5 ML(5MG/ML) SYRINGE As Ordered ONE (23:53)
[2019-07-28] MEDS ORDERED: PHENYLephrine HCL 500 MCG/5 ML (100MCG/ML) SYRINGE (J2370) As Ordered ONE (23:53)
[2019-07-29] VITALS (11 sets, daily range): BP systolic 116–172; BP diastolic 59–93
[2019-07-29] MEDS ORDERED: METOCLOPRAMIDE INJ 10MG/2ML VIAL (J2765) IV PRN (00:06)
[2019-07-29] MEDS ORDERED: ONDANSETRON 4MG/2ML VIAL (J2405) IV PRN ×3 (00:06→01:30)
[2019-07-29] MEDS ORDERED: NALBUPHINE HCL 10 MG/ML AMP (J2300) IV PRN (00:06)
[2019-07-29] MEDS ORDERED: NALOXONE INJ 0.4 MG/1 ML VIAL (J2310) IV PRN ×2 (00:06)
[2019-07-29] MEDS ORDERED: diphenhydrAMINE INJ 50MG/ML VIAL (J1200) IV PRN (00:06)
[2019-07-29] MEDS ORDERED: ONDANSETRON 4MG/2ML VIAL (J2405) As Ordered ONE (00:15)
[2019-07-29 00:16] LABS: HEMOGLOBIN 10.3 g/dl (12.0-15.5); MEAN CORPUSCULAR HGB CONC 32.2 g/dl (32.0-36.5); MEAN CORPUSCULAR VOLUME 90.1 fl (80.0-96.0); PLATELET COUNT, AUTOMATED 382 10^3/uL (150-450); RED BLOOD COUNT 3.55 10^6/uL (4.00-5.40); WHITE BLOOD COUNT 15.9 10^3/uL (4.0-10.0)
[2019-07-29] MEDS ORDERED: KETOROLAC 60 MG/2 ML VIAL (J1885) As Ordered ONE (00:24)
[2019-07-29] MEDS ORDERED: OXYTOCIN DRIP 30 UNITS in APPROPRIATE DILUENT 1 EA IV SCH (00:58)
[2019-07-29] MEDS ORDERED: ACETAMINOPHEN 500 MG TAB PO PRN (01:00)
[2019-07-29] MEDS ORDERED: PROMETHAZINE 25 MG TAB PO PRN (01:00)
[2019-07-29] MEDS ORDERED: RHOGAM 300 MCG (1500 IU) INJ (J2790) IM SCH (01:00)
[2019-07-29] MEDS ORDERED: MEASLES,MUMPS,RUBELLA VACCINE INJ (MMR-II) (90707) SC SCH (01:00)
[2019-07-29] MEDS ORDERED: PERCOCET 5MG/325MG TAB PO PRN (01:00)
[2019-07-29] MEDS ORDERED: OXYTOCIN 30 UNITS IN 0.9% NaCl 500ML IV BAG (J2590) As Ordered ONE (01:26)
[2019-07-29] MEDS ORDERED: MEPERIDINE INJ 25 MG/ML VIAL (J2175) IV PRN (01:30)
[2019-07-29] MEDS ORDERED: oxyCODONE 5MG TAB PO PRN (01:30)
[2019-07-29] MEDS ORDERED: fentaNYL 100 MCG/2 ML INJECTION (J3010) IV PRN (01:30)
[2019-07-29] MEDS: LR 1,000 ML IV SCH ×4 (01:35→21:23)
[2019-07-29] MEDS: KETOROLAC 30 MG/ML VIAL (J1885) IV SCH ×3 (06:42→18:51)
[2019-07-29] MEDS: PRENATAL VITAMINS CHEWABLE TABLET PO SCH (08:43)
[2019-07-29] MEDS: DOCUSATE SODIUM 100 MG CAP PO SCH ×2 (08:43→21:07)
[2019-07-29] MEDS ORDERED: ADACEL/BOOSTRIX VACCINE (DIPHTH/PERTUSS/ACELL/TETANUS)0.5ML SYR (90715) IM ONE (12:00)
[2019-07-29] MEDS: PERCOCET 5MG/325MG TAB PO PRN (22:27)
[2019-07-30] MEDS: IBUPROFEN 800 MG TAB PO SCH ×2 (02:23→11:25)
[2019-07-30 05:31] VITALS: BP 105/51
[2019-07-30 07:02] LABS: HEMATOCRIT 25.2 % (36.0-47.0); MEAN CORPUSCULAR HGB CONC 32.9 g/dl (32.0-36.5); MEAN CORPUSCULAR VOLUME 88.1 fl (80.0-96.0); PLATELET COUNT, AUTOMATED 347 10^3/uL (150-450); RED BLOOD COUNT 2.86 10^6/uL (4.00-5.40); WHITE BLOOD COUNT 19.4 10^3/uL (4.0-10.0)
[2019-07-30 07:07] LABS: HEMOGLOBIN 8.3 g/dl (12.0-15.5)
--- NOTE | 2019-07-30 07:33 | IPNPDOC ---
Text Note Date of Service The patient was seen on 07/30/19. NOTE Note POD#1 s/p urgent PLTCS 2/2 placental abruption S: Pain well controlled, ambulating without difficulty, tolerating regular diet, voiding spontaneously, lochia decreasing/minimal. No headache, sob, chest pain, nausea/vomiting/fevers/chills. O: Normotensive, normal HR, afebrile ABD: soft, nontender, nondistended, fundus firm at U, dressing dry and intact Ext: no lower extremity edema bilaterally, negative Bhavin's sign A/P: POD#1. Recovering well. Hemodynamically stable, afebrile, good pain control. Twins at [place]. -Routine care -Anticipate d/c to home this afternoon or tomorrow. VS,Fishbone, I+O VS, Fishbone, I+O Laboratory Tests 07/30/19 06:40 Red Blood Count 2.86 L, Mean Corpuscular Volume 88.1, Mean Corpuscular Hemoglobin 29.0, Mean Corpuscular Hemoglobin Concent 32.9, Red Cell Distribution Width 12.7 Vital Signs Date Time Temp Pulse Resp B/P (MAP) Pulse Ox O2 Delivery O2 Flow Rate FiO2 07/30/19 05:31 97.6 75 16 105/51 (69) 07/29/19 22:19 97 I&O- Last 24 Hours up to 6 AM 07/30/19 06:00 Output Total 2175 ml Balance -2175 ml GME ATTESTATION GME ATTESTATION My faculty preceptor for this patient encounter was physically present during the encounter and was fully available. All aspects of the patient interview, examination, medical decision making process, and medical care plan development were reviewed and approved by the faculty preceptor. The faculty preceptor is aware and concurs with the plan as stated in the body of this note and will attest to such by his/her cosignature. ANTONETTE MACKENZIE DO Jul 30, 2019 07:33
[2019-07-30] MEDS: DOCUSATE SODIUM 100 MG CAP PO SCH (07:42)
[2019-07-30] MEDS: PRENATAL VITAMINS CHEWABLE TABLET PO SCH (07:42)
[2019-07-30] MEDS: PERCOCET 5MG/325MG TAB PO PRN (13:44)
[2019-07-30] MEDS ORDERED: IBUP80TA PO (14:08)
[2019-07-30] MEDS ORDERED: PERCOCET PO (14:08)
--- NOTE | 2019-07-30 18:32 | DSES ---
DATE OF ADMISSION: 07/29/2019 DATE OF DISCHARGE: 07/30/2019 DISCHARGE DIAGNOSES: 1. Primary low transverse section. 2. Acute placental abruption. 3. Twin delivery, dichorionic/diamniotic twin gestation at 30 +1 weeks. PROCEDURES PERFORMED WHILE IN HOSPITAL: 1. Primary low transverse section. 2. Spinal with Duramorph. HISTORY OF PRESENT ILLNESS: Tylor is a 23-year-old (G) 3, now para 3 who presented to labor and delivery at 30 +1 weeks estimated gestation with dichorionic/diamniotic twins. She presented with complaints of painful frequent uterine contractions and began to have heavy vaginal bleeding and loss of fluid shortly after her arrival to the unit. Given the level of bleeding as well as malpresentation of twin B, a primary low transverse section was recommended. The patient went to the operating room and she underwent an uncomplicated primary low transverse section productive of two live born males. Twin A was cephalic, scores 8 and 9, weight 1282 grams, 2 pounds, 13 ounces. Twin B was footling breech presentation, scores 7 and 9, 1358 grams, 3 pounds. Both babies were transferred down to [place]. Estimated blood loss was 500 mL. Tylor did well postoperatively and by postoperative day number one had met all discharge criteria. She was discharged home in stable condition. PHYSICAL EXAMINATION: On day of discharge, her vital signs were stable. She was afebrile. GENERAL APPEARANCE: Well-appearing, in no acute distress. ABDOMEN: Soft, appropriately tender fundus, firm below the umbilicus. INCISION: Dressing dry and intact. EXTREMITIES: Negative for calf tenderness, Bhavin's sign negative bilaterally. DISCHARGE INSTRUCTIONS: 1. She was instructed to remain on pelvic rest for six weeks. 2. To remove her dressing in 5-7 days. 3. Report severe pain, heavy vaginal bleeding, fever or incisional issues. DISCHARGE MEDICATIONS: Ibuprofen and Percocet. FOLLOWUP: Followup with [facility] in two weeks for an incision check. LIZETH
== END 2019-07-30 16:18 | disposition home or self-care (01) | DRG 540 ==
LOC: M LDO 22:38 → M LDI 23:35 → M OBS 07-29 03:53
PROVIDERS: ADMIT Obstetrics & Gynecology; ATTEND Obstetrics & Gynecology
PROC: 10D00Z1 Extraction of Products of Conception, Low, Open Approach (ICD-10-PCS; principal; 2019-07-29 00:07)
DX: O45.93 Premature separation of placenta, unspecified, third trimester (principal); O60.14X1 Preterm labor third trimester with preterm delivery third trimester, fetus 1; O60.14X2 Preterm labor third trimester with preterm delivery third trimester, fetus 2; O30.043 Twin pregnancy, dichorionic/diamniotic, third trimester; Z3A.30 30 weeks gestation of pregnancy; Z37.2 Twins, both liveborn; O32.8XX2 Maternal care for other malpresentation of fetus, fetus 2